=== PATIENT | female | born 1990 | race Two or more races ===

== ENCOUNTER 2022-10-18 00:22 | Inpatient (IN) | payer OTHER ==
[~2022-10-18] VITALS: Ht 152.4 cm; Wt 74.8 kg
[2022-10-18] MEDS ORDERED: PRENATAL TABLE1 EAC1 PO (01:47)
== END 2022-10-20 13:34 | disposition home or self-care (01) | DRG 805 ==
LOC: LDR 00:22 → OB/GYN 15:13
PROVIDERS: ADMIT Obstetrics & Gynecology; ATTEND Obstetrics & Gynecology
PROC: 10E0XZZ Delivery of Products of Conception, External Approach (ICD-10-PCS; principal; 2022-10-18)
PROC: 0HQ9XZZ Repair Perineum Skin, External Approach (ICD-10-PCS; 2022-10-18)
PROC: 4A1HXCZ Monitoring of Products of Conception, Cardiac Rate, External Approach (ICD-10-PCS; 2022-10-18)
DX: O70.0 First degree perineal laceration during delivery (principal); O60.14X0 Preterm labor third trimester with preterm delivery third trimester, not applicable or unspecified; Z37.0 Single live birth; O69.89X0 Labor and delivery complicated by other cord complications, not applicable or unspecified; Z3A.36 36 weeks gestation of pregnancy; Z20.822 Contact with and (suspected) exposure to COVID-19